=== PATIENT | female | born 1970 ===

== ENCOUNTER 2018-06-10 18:20 | Inpatient (IN) | payer BC ==
[2018-06-10] MEDS ORDERED: Sodium Chloride 0.9% 1,000 ML IV STA ×2 (18:41→19:49)
[2018-06-10 19:05] LABS: BASO # 0.01 K/mm3 (0.0-2.0); HEMOGLOBIN 12.2 g/dL (12.0-16.0); LYMPH # 1.3 (1.2-3.4); LYMPH % 5.8 % (22.0-35.0); MEAN CELL VOLUME 80.7 fl (80.0-105.0); MEAN CORPUSCULAR HEMOGLOBIN 26.8 pg (25.0-35.0); MEAN CORPUSCULAR HGB CONC 33.2 g/dl (31.0-37.0); MONO # 0.6 (0.1-0.6); MONO % 2.6 % (1.0-6.0); PLATELET COUNT 407 10^3/uL (120.0-450.0); RBC 4.55 10^6/uL (3.5-6.1); RED CELL DISTRIBUTION WIDTH 16.7 % (11.5-14.5); WHITE BLOOD COUNT 22.3 10^3/uL (4.5-11.0)
[2018-06-10 19:06] LABS: PH,URINE 6.5 (4.7-8.0); URINE APPEARANCE CLEAR (CLEAR); URINE BILIRUBIN NEGATIVE (NEGATIVE); URINE BLOOD LARGE (NEGATIVE); URINE COLOR LIGHT YELLOW (YELLOW); URINE GLUCOSE (UA) NEGATIVE (NEGATIVE); URINE LEUKOCYTE ESTERASE NEGATIVE Leu/uL (NEGATIVE); URINE PROTEIN 30 mg/dL (<30 mg/dL); URINE UROBILINOGEN 0.2 E.U./dL (<1 E.U./dL)
--- NOTE | 2018-06-10 19:07 | ED PDOC ---
Arrival/HPI - General Chief Complaint: Female Genitourinary Time Seen by Provider: 06/10/18 18:20 Historian: Patient - History of Present Illness Narrative History of Present Illness (Text): 06/10/18 18:53 48 y/o female with PMH of ovarian cysts, HTN presents to the ED c/o lower abdominal pain and vaginal bleeding x 1 day. Abdominal pain is sharp and located LLQ. Associated nausea and 2 episodes of non-bloody, non-bilious vomiting. Pt was due for her menstruation and started yesterday. States the vaginal bleeding is heavier than her typical periods. Denies fever, chills, diarrhea, chest pain, SOB, urinary symptoms, back pain, neck pain, cough, headache, palpitations, lightheadedness, or any other associated symptoms. Past Medical History - Provider Review Nursing Documentation Reviewed: Yes - Cardiac Hx Cardiac Disorders: Yes Hx Hypertension: Yes - Genitourinary/Gynecological Hx Genitourinary Disorders: Yes (ovarian cyst) - Psychiatric Hx Substance Use: No - Surgical History Hx Tubal Ligation: Yes Family/Social History - Physician Review Nursing Documentation Reviewed: Yes Family/Social History: No Known Family HX Smoking Status: Never Smoked Hx Alcohol Use: No Hx Substance Use: No Allergies/Home Meds Allergies/Adverse Reactions: Allergies No Known Allergies Allergy (Verified 06/10/18 18:26) Home Medications: Home Meds Medication Instructions Recorded Confirmed Losartan [Cozaar] 100 mg PO DAILY 06/10/18 06/10/18 Review of Systems - Review of Systems Constitutional: Normal. absent: Fatigue Eyes: Normal. absent: Vision Changes ENT: Normal. absent: Sore Throat, Sinus Congestion Respiratory: Normal. absent: SOB, Cough Cardiovascular: Normal. absent: Chest Pain, Palpitations Gastrointestinal: Abdominal Pain, Nausea, Vomiting. absent: Stool Changes, Constipation, Diarrhea, Appetite Changes, Hematochezia, Hematemesis Genitourinary Female: Vaginal Bleeding. absent: Dysuria, Frequency, Hematuria, Urine Output Changes, Vaginal Discharge Musculoskeletal: Normal. absent: Back Pain, Neck Pain Skin: Normal. absent: Rash Neurological: Normal. absent: Headache, Dizziness Physical Exam Vital Signs Reviewed: Yes Vital Signs Temp Pulse Resp BP Pulse Ox 06/10/18 18:33 98.3 F 104 H 18 140/80 97 Temperature: Afebrile Blood Pressure: Normal Pulse: Regular Respiratory Rate: Normal Appearance: Positive for: Well-Appearing, Non-Toxic, Comfortable Pain Distress: None Mental Status: Positive for: Alert and Oriented X 3 - Systems Exam Head: Present: Atraumatic, Normocephalic Pupils: Present: PERRL Extroacular Muscles: Present: EOMI Conjunctiva: Present: Normal Mouth: Present: Moist Mucous Membranes Neck: Present: Normal Range of Motion. No: Meningeal Signs Respiratory/Chest: Present: Clear to Auscultation, Good Air Exchange. No: Respiratory Distress, Accessory Muscle Use Cardiovascular: Present: Regular Rate and Rhythm, Normal S1, S2, Peripheal Pulses Present Abdomen: Present: Tenderness (suprapubic, LLQ), Normal Bowel Sounds. No: Distention, Peritoneal Signs Back: Present: Normal Inspection. No: CVA Tenderness Upper Extremity: Present: Normal Inspection, Normal ROM, NORMAL PULSES, Neurovascularly Intact, Capillary Refill < 2s. No: Cyanosis, Edema, Temperature Abnormalties Lower Extremity: Present: Normal Inspection, NORMAL PULSES, Normal ROM, Neurovascularly Intact, Capillary Refill < 2 s. No: Edema, Temperature Abnormal ties Neurological: Present: GCS=15, CN II-XII Intact, Speech Normal, Motor Func Grossly Intact, Normal Sensory Function, Gait Normal Skin: Present: Warm, Dry, Normal Color. No: Rashes Psychiatric: Present: Alert, Oriented x 3, Normal Insight, Normal Concentration, Normal Affect, Normal Mood Medical Decision Making ED Course and Treatment: 06/10/18 18:52 Initial Plan: * CBC, CMP * Lipase * Coags * UA * POC preg * Transvaginal US * IVF * Zofran * Toradol 19:21 Bloodwork reviewed, leukocytosis noted at 22. VBG ordered secondary to mild tachycardia. CT Abd/Pelvis with IV contrast ordered. Potassium 2.7, will replete with 40mEq oral KDur with 20mEq x 2 IVP. EKG ordered. Pt unable to tolerate transvaginal ultrasound per tech, pelvic ultrasound was completed. Pt refusing pelvic exam. EKG shows NSR at 80 with prolonged QT; No STEMI or other signs of acute isc hemia. Case discussed with ED attending Dr. Ness who agrees with plan of care. 19:53 Lactate 3.5. Pt tachycardic but not tachypneic or febrile. Lactate to be redrawn at 22:40. Code sepsis called. Blood and urine cultures ordered. 30cc/kg fluids started. Rocephin and Flagyl ordered. 21:02 Ultrasound shows enlarged uterus and ovarian cysts without free fluid. Pt continues to refuse pelvic exam. Educated patient on importance of pelvic exam given her current complaints. Pt continues to refuse. CXR shows no active disease as read by me. 22:20 CT shows moderate enteritis and nabothian cysts. 22:31 Case discussed with medicine [facility] operations staff officer, Dr. Kim who requested 40mEq PO KCl and 2g Mg Sulfate. He accepted patient to his service with diagnosis of leukocytosis, hypokalemia, and enteritis. financial institution president notified, who will come to see patient. - Lab Interpretations Lab Results: 06/10/18 18:34 06/10/18 18:34 Lab Results 06/10/18 19:40: pO2 63 H, VBG pH 7.44 H, VBG pCO2 42.0, VBG HCO3 28.5 H, VBG Total CO2 29.8 H, VBG O2 Sat (Calc) 93.8 H, VBG Base Excess 3.9 H, VBG Potassium 2.5 L*, Glucose 165 H, Lactate 3.5 H, FiO2 21.0, Crit Value Called To Cathy louis, Crit Value Called By Atc, Blood Gas Notified Time 1945, Sodium 133.0, Chloride 96.0 L, Venous Blood Potassium 2.5 L* 06/10/18 18:34: Sodium 132, Potassium 2.7 L*, Chloride 91 L, Carbon Dioxide 26, Anion Gap 17, BUN 10, Creatinine 0.5 L, Est GFR ( Amer) > 60, Est GFR (Non-Af Amer) > 60, Random Glucose 156 H, Calcium 8.5, Magnesium 1.7, Total Bilirubin 0.6, AST 25, ALT 11, Alkaline Phosphatase 88, Total Protein 7.1, Albumin 4.0, Globulin 3.0, Albumin/Globulin Ratio 1.3, Lipase 23 06/10/18 18:34: Urine Color Light yellow, Urine Appearance Clear, Urine pH 6.5, Ur Specific [place] 1.020, Urine Protein 30 H, Urine Glucose (UA) Negative, Urine Ketones Trace H, Urine Blood Large H, Urine Nitrate Negative, Urine Bilirubin Negative, Urine Urobilinogen 0.2, Ur Leukocyte Esterase Negative, Urine RBC 15 - 20 H, Urine WBC None, Ur Epithelial Cells None 06/10/18 18:34: PT 12.8 H, INR 1.15, APTT 30.1 06/10/18 18:34: WBC 22.3 H, RBC 4.55, Hgb 12.2, Hct 36.7, MCV 80.7, MCH 26.8, MCHC 33.2, RDW 16.7 H, Plt Count 407, MPV 9.0, Neut % (Auto) 91.6 H, Lymph % (Auto) 5.8 L, [place] % (Auto) 2.6, Eos % (Auto) 0.0 L, Baso % (Auto) 0.0, Lymph # (Auto) 1.3, [place] # (Auto) 0.6, Eos # (Auto) 0.0, Baso # (Auto) 0.01, Absolute Neuts (auto) 20.46 H, Neutrophils % (Manual) 87 H, Band Neutrophils % 1, Lymphocytes % (Manual) 8 L, Monocytes % (Manual) 4, Platelet Evaluation Normal I have reviewed the lab results: Yes - RAD Interpretation Narrative RAD Interpretations (Text): 06/10/18 22:13 CT Abd/Pelvis with IV contrast: Findings: Chest: The visualized lung bases are clear. There is a moderate sized hiatal hernia. Abdomen: The liver, spleen, pancreas, kidneys, gallbladder, and adrenal glands are unremarkable. The aorta is within normal limits. There is no evidence of abdominal lymphadenopathy or ascites. There is moderate fluid distention of bowel wall thickening seen throughout the small bowel. There is no focal evidence of obstruction. Pelvis: The colon is unremarkable, with no obstructive or inflammatory changes. There is mild sigmoid diverticulosis without evidence of diverticulitis. The appendix is normal. The urinary bladder is within normal limits. There are numerous large cystic lesions in the region of the cervix. The largest of these is a complex lesion measuring 4.2 x 4.2 cm. The uterus is slightly enlarged, with slight heterogeneity noted. Moderate amount of fluid is seen in the endometrial canal. The adnexa appear within normal limits. There is no evidence of pelvic lymphadenopathy or ascites. Bones: There are no suspicious osseous abnormalities seen. Impression: 1. Moderate enteritis. No evidence of small bowel obstruction. 2. Mild sigmoid diverticulosis without evidence of diverticulitis. 3. The kidneys and renal collecting system is grossly unremarkable. 4. Enlarged, heterogeneous uterus suspicious for a leiomyomatous involvement. 5. Numerous large simple a complex cystic lesions in the region of the cervix, consistent with either fibroids or extensive Nabothian cysts. Additionally, there is a moderate amount of fluid within the endometrial canal. This could represent cervical obstruction because of the fibroids or Nabothian cysts in the lower uterine segment/cervix. Clinical correlation is recommended. If further imaging is required, MRI is recommended Electronically signed on Jun 10, 2018 10:05:23 PM EDT by: Bernard Villegas M.D., NATY Certified By [facility] [facility] Fellowship Trained MRI and CT Specialist Pelvic Ultrasound: Findings Uterus Measures 10.62 x 7 x 8.12 cm. Normal in size and appearance. No fibroid or other mass lesion seen. Endometrium Thickened measures 14.6 mm in diameter. Unremarkable. Right ovary Measures 4.02 x 2.73 x 2.84 cm. No solid mass. Normal flow. Cyst measures 1.63 x 1.57 x 1.5 cm. Left ovary Measures 6.24 x 3.48 x 4.22 cm. No solid mass. Normal flow. Cysts measure 1.93 x 1.63 x 1.74 cm, 2.43 x 2.1 x 2.41 cm and 1.79 x 1.77 x 1.86 cm. Free fluid No significant free fluid noted. Other Findings None. Impression 1. Enlarged uterus. 2. Thickened endometrium. 3. Bilateral ovarian cysts. Electronically signed on Jun 10, 2018 8:17:44 PM EDT by: Bernard Villegas M.D., NATY Certified By [facility] [facility] Fellowship Trained MRI and CT Specialist Radiology Orders: 06/10/18 18:48 TRANSVAGINAL [US] Stat Chartered Wealth Manager: Radiologist - EKG Interpretation EKG Interpretation (Text): 06/10/18 20:11 Rate 80; NSR; Normal [place]; Prolonged QT; No STEMI, nonspecific ST/T wave changes Interpreted by ED Physician: Yes Type: 12 lead EKG - Medication Orders Current Medication Orders: Sodium Chloride (Sodium Chloride 0.9%) 1,000 mls @ 999 mls/hr IV .Q1H1M STA Stop: 06/10/18 19:41 Discontinued Medications Ketorolac Tromethamine (Toradol) 15 mg IVP STAT STA Stop: 06/10/18 18:42 Ondansetron HCl (Zofran Inj) 4 mg IVP STAT STA Stop: 06/10/18 18:42 Disposition/Present on Arrival - Present on Arrival Any Indicators Present on Arrival: No History of DVT/PE: No History of Uncontrolled Diabetes: No Urinary Catheter: No History of Decub. Ulcer: No History Surgical Site Infection Following: None - Disposition Have Diagnosis and Disposition been Completed?: Yes Diagnosis: Leukocytosis, Enteritis, Hypokalemia, Nabothian cyst Disposition: HOSPITALIZED Disposition Time: 22:31 Patient Problems: Current Active Problems Problem Status Onset Enteritis Acute Hypokalemia Acute Leukocytosis Acute Nabothian cyst Acute Condition: STABLE
[2018-06-10 19:09] LABS: URINE RBC 15 - 20 /hpf (0-2)
[2018-06-10 19:11] LABS: INR 1.15; PARTIAL THROMBOPLASTIN TIME 30.1 Seconds (26.9-38.3); PROTHROMBIN TIME 12.8 SECONDS (9.4-12.5)
[2018-06-10 19:24] LABS: ALB/GLOB RATIO 1.3 (1.1-1.8); ALT/SGPT 11 U/L (7-56); AST/SGOT 25 U/L (14-36); BLOOD UREA NITROGEN 10 mg/dL (7-21); CALCIUM 8.5 mg/dL (8.4-10.5); GFR NON-AFRICAN AMERICAN > 60; LIPASE 23 U/L (23-300)
[2018-06-10] MEDS ORDERED: Potassium Chloride 20 mEq ER Tab PO STA ×2 (19:25→22:29)
[2018-06-10] MEDS ORDERED: Iohexol 350 MG/100 ML VIAL ONE (19:33)
[2018-06-10 19:34] LABS: BAND 1 % (0-2); LYMPHOCYTE 8 % (22.0-35.0); MONOCYTE 4 % (1.0-6.0); NEUTROPHIL 87 % (50.0-70.0)
[2018-06-10 19:35] LABS: PLATELET ESTIMATE NORMAL (NORMAL)
[2018-06-10 19:48] LABS: VENOUS BLOOD GAS BASE EXCESS 3.9 mmol/L (0.0-2.0); VENOUS BLOOD GAS PO2 63 mm/Hg (30-55); VENOUS BLOOD PH 7.44 (7.32-7.43)
[2018-06-10] MEDS ORDERED: cefTRIAXone 1 gm 1 GM/100 ML BAG IVPB STA (19:49)
[2018-06-10] MEDS ORDERED: metroNIDAZOLE IV 500 mg/100 ml 500 MG/100 ML BAG IVPB STA (19:49)
[2018-06-10] MEDS ORDERED: Magnesium Sulfate 2 gm/50 ml 2 GM/50 ML BAG IVPB ONE (22:28)
[2018-06-10] MEDS: Sodium Chloride 0.9% 1,000 ML IV SCH (22:41)
[2018-06-10 23:19] LABS: VENOUS BLOOD GAS BASE EXCESS -0.8 mmol/L (0.0-2.0); VENOUS BLOOD GAS PO2 72 mm/Hg (30-55); VENOUS BLOOD PH 7.36 (7.32-7.43)
--- NOTE | 2018-06-10 23:53 | CP.PCM.HP ---
History of Present Illness - History of Present Illness History of Present Illness: PGY-1 History and Physical for Dr. Kim CC: lower abdominal pain, heavy menstrual bleeding HPI: Patient is a 48 year old female with past medical history of bilateral ovarian cysts and HTN presenting to the ED for acute onset lower abdominal pain with associated heavy menstrual bleeding that began yesterday. Abdominal pain is localized to her left lower quadrant and is described as sharp, nonradiating, 10/10 in severity. She also endorses 2 episodes of non- bloody, non-bilious vomiting today secondary to intractable abdominal pain. She states her periods are regular and usually regular flow, although she does intermittently have periods with heavier flow. LMP that began yesterday is heavier flow than normal. She state she experienced similar symptoms about a year ago. No fevers/chills, headaches, chest pain, palpitations, sob, cough, n/v/d/c, dysuria, melena, hematochezia. 12 pt ROS reviewed and otherwise negati ve. PMHx: HTN, ovarian cysts PSHx: tubal ligation Allergies: NKDA Home Meds: reviewed Social Hx: denies alcohol, tobacco, or illicit drug use Family Hx: unknown PMD: Dr. Chandler Present on Admission - Present on Admission Any Indicators Present on Admission: No Review of Systems - Review of Systems All systems: reviewed and no additional remarkable complaints except Review of Systems: as per HPI Past Patient History - Past Social History Smoking Status: Never Smoked - CARDIAC Hx Cardiac Disorders: Yes Hx Hypertension: Yes - GENITOURINARY/GYNECOLOGICAL Hx Genitourinary Disorders: Yes (ovarian cyst) - PSYCHIATRIC Hx Substance Use: No - SURGICAL HISTORY Hx Tubal Ligation: Yes Meds Allergies/Adverse Reactions: Allergies Allergy/AdvReac Type Severity Reaction Status Date / Time No Known Allergies Allergy Verified 06/10/18 18:26 Physical Exam - Constitutional Appears: Non-toxic, No Acute Distress - Head Exam Head Exam: ATRAUMATIC, NORMAL INSPECTION, NORMOCEPHALIC - Eye Exam Eye Exam: EOMI, Normal appearance, PERRL Pupil Exam: NORMAL ACCOMODATION - ENT Exam ENT Exam: Mucous Membranes Moist, Normal Exam - Neck Exam Neck exam: Positive for: Full Rom, Normal Inspection. Negative for: Tenderness - Respiratory Exam Respiratory Exam: Clear to Auscultation Bilateral, NORMAL BREATHING PATTERN. absent: Accessory Muscle Use, Rales, Rhonchi, Wheezes, Respiratory Distress, Stridor - Cardiovascular Exam Cardiovascular Exam: REGULAR RHYTHM, +S1, +S2 - GI/Abdominal Exam GI & Abdominal Exam: Normal Bowel Sounds, Soft. absent: Distended, Firm, Guarding, Organomegaly, Rebound, Rigid, Tenderness (no TTP elicited after receiving toradol in ED) - Exam Additional comments: refused - Extremities Exam Extremities exam: Positive for: normal capillary refill, normal inspection, pedal pulses present. Negative for: calf tenderness, pedal edema - Back Exam Back exam: NORMAL INSPECTION. absent: CVA tenderness (L), CVA tenderness (R), paraspinal tenderness - Neurological Exam Neurological exam: Alert, CN II-XII Intact, Oriented x3 - Psychiatric Exam Psychiatric exam: Normal Affect, Normal Mood - Skin Skin Exam: Dry, Intact, Normal Color, Warm Results - Vital Signs Recent Vital Signs: Last Vital Signs Temp 98.7 F 06/10/18 22:42 Pulse 89 06/10/18 22:53 Resp 17 06/10/18 22:53 BP 129/75 06/10/18 22:53 Pulse Ox 99 06/10/18 22:53 - Labs Result Diagrams: 06/10/18 18:34 06/10/18 18:34 Labs: Laboratory Results - last 24 hr 06/10/18 06/10/18 06/10/18 18:34 18:34 18:34 WBC 22.3 H RBC 4.55 Hgb 12.2 Hct 36.7 MCV 80.7 MCH 26.8 MCHC 33.2 RDW 16.7 H Plt Count 407 MPV 9.0 Neut % (Auto) 91.6 H Lymph % (Auto) 5.8 L [place] % (Auto) 2.6 Eos % (Auto) 0.0 L Baso % (Auto) 0.0 Lymph # (Auto) 1.3 [place] # (Auto) 0.6 Eos # (Auto) 0.0 Baso # (Auto) 0.01 Absolute Neuts (auto) 20.46 H Neutrophils % (Manual) 87 H Band Neutrophils % 1 Lymphocytes % (Manual) 8 L Monocytes % (Manual) 4 Platelet Evaluation Normal PT 12.8 H INR 1.15 APTT 30.1 pO2 VBG pH VBG pCO2 VBG HCO3 VBG Total CO2 VBG O2 Sat (Calc) VBG Base Excess VBG Potassium Glucose Lactate FiO2 Crit Value Called To Crit Value Called By Blood Gas Notified Time Sodium Potassium Chloride Carbon Dioxide Anion Gap BUN Creatinine Est GFR ( Amer) Est GFR (Non-Af Amer) Random Glucose Calcium Magnesium Total Bilirubin AST ALT Alkaline Phosphatase Total Protein Albumin Globulin Albumin/Globulin Ratio Lipase Venous Blood Potassium Urine Color Light yellow Urine Appearance Clear Urine pH 6.5 Ur Specific [place] 1.020 Urine Protein 30 H Urine Glucose (UA) Negative Urine Ketones Trace H Urine Blood Large H Urine Nitrate Negative Urine Bilirubin Negative Urine Urobilinogen 0.2 Ur Leukocyte Esterase Negative Urine RBC 15 - 20 H Urine WBC None Ur Epithelial Cells None 06/10/18 06/10/18 06/10/18 18:34 19:40 23:12 WBC RBC Hgb Hct MCV MCH MCHC RDW Plt Count MPV Neut % (Auto) Lymph % (Auto) [place] % (Auto) Eos % (Auto) Baso % (Auto) Lymph # (Auto) [place] # (Auto) Eos # (Auto) Baso # (Auto) Absolute Neuts (auto) Neutrophils % (Manual) Band Neutrophils % Lymphocytes % (Manual) Monocytes % (Manual) Platelet Evaluation PT INR APTT pO2 63 H 72 H VBG pH 7.44 H 7.36 VBG pCO2 42.0 44.0 VBG HCO3 28.5 H 24.9 VBG Total CO2 29.8 H 26.3 VBG O2 Sat (Calc) 93.8 H 94.6 H VBG Base Excess 3.9 H -0.8 L VBG Potassium 2.5 L* 3.3 L Glucose 165 H 136 H Lactate 3.5 H 2.6 H FiO2 21.0 21.0 Crit Value Called To Cathy dubose popcorn candy maker Crit Value Called By Atc [facility] Blood Gas Notified Time 1945 2318 Sodium 132 133.0 140.0 Potassium 2.7 L* Chloride 91 L 96.0 L 110.0 H Carbon Dioxide 26 Anion Gap 17 BUN 10 Creatinine 0.5 L Est GFR ( Amer) > 60 Est GFR (Non-Af Amer) > 60 Random Glucose 156 H Calcium 8.5 Magnesium 1.7 Total Bilirubin 0.6 AST 25 ALT 11 Alkaline Phosphatase 88 Total Protein 7.1 Albumin 4.0 Globulin 3.0 Albumin/Globulin Ratio 1.3 Lipase 23 Venous Blood Potassium 2.5 L* 3.3 L Urine Color Urine Appearance Urine pH Ur Specific [place] Urine Protein Urine Glucose (UA) Urine Ketones Urine Blood Urine Nitrate Urine Bilirubin Urine Urobilinogen Ur Leukocyte Esterase Urine RBC Urine WBC Ur Epithelial Cells Assessment & Plan - Assessment and Plan (Free Text) Assessment: 48 year old female with pmhx of ovarian cysts and HTN presenting to ED with acute onset LLQ abdominal pain and associated heavy menstrual bleeding. Elevated WBC in ED, tachycardic, neutrophilia, elevated lactate. Code Sepsis called. Plan: Sepsis, unknown etiology -HR 104, WBC 22.3 on admission -initial VBG in ED: Lactate 3.5 -UA: large blood, 15-20 RBC, high protein -received rocephin/flagyl x1 in ED -repeat cbc/cmp, ABG -procalcitonin -IVF @ 100cc/hr -f/u urine, blood cultures -c/w rocephin/flagyl for empiric coverage Hypokalemia -K 2.7 on admission -s/p 40 mEq Kdur, 20 mEq KCl IVPB x 2 in ED -s/p 2 g Mg sulfate -repeat labs, continue to monitor -replete prn Lower abdominal pain -s/p toradol 15 mg IVP x 2 in ED -CT abdomen/pelvis w/ IV contrast in ED (06/10): Moderate enteritis. No evidence of small bowel obstruction. Mild sigmoid diverticulosis without evidence of diverticulitis. Enlarged, heterogeneous uterus suspicious for a leiomyomatous involvement. Numerous large simple a complex cystic lesions in the region of the cervix, consistent with either fibroids or extensive Nabothian cysts. Additionally, there is a moderate amount of fluid within the endometrial canal. his could represent cervical obstruction because of the fibroids or Nabothian cysts in the lower uterine segment/cervix. Clinical correlation is recommended. If further imaging is required, MRI is recommended -GI (Dr. Brooks) consulted for abdominal pain, enteritis -toradol 15 mg IVP q6 prn for pain Heavy menstrual bleeding -H/H stable, continue to monitor -[employer] (Dr. Ervin) consulted Hx of ovarian cysts -Pelvis ultrasound: thickened endometrium, enlarged uterus, b/l ovarian cysts -f/u [employer] recs Hx of HTN -normotensive on admission, continue to monitor -may resume home losartan 100 mg PO daily PPx, Diet, Disposition -DVT ppx: scds -GI ppx: protonix 40 mg IVP daily -Diet: HHD Case discussed with Dr. Judy Mott DO, PGY-1
--- NOTE | 2018-06-11 01:23 | PCM.SEPTIC ---
Sepsis Progress Note - Reassessment Type Date of Evaluation: 06/11/18 Time of Evaluation: :22 Reassessment Type: Non-invasive reassessment - Non Invasive Reassessment Were the most recent vital sign reviewed: Yes Vital Sign (Latest): Temp Pulse Resp BP Pulse Ox 98.7 F 89 17 129/75 99 06/10/18 22:42 06/10/18 22:53 06/10/18 22:53 06/10/18 22:53 06/10/18 22:53 Cardiovascular: Yes: Regular Rate, Rhythm Respiratory: Yes: Normal Breath Sounds. No: Accessory Muscle Use, Rales, Rhonchi, Stridor, Wheezing, Respiratory Distress Capillary Refill: Normal (Less than 2 sec) Pulses: Normal Radial, Normal Dorsalis Pedis, Normal Posterior Tibialis Skin: Normal Color, Warm, Dry
[2018-06-11 01:44] LABS: EOS % 0.1 % (1.5-5.0); HEMOGLOBIN 10.7 g/dL (12.0-16.0); LYMPH # 2.2 (1.2-3.4); LYMPH % 13.2 % (22.0-35.0); MEAN CORPUSCULAR HEMOGLOBIN 26.4 pg (25.0-35.0); MEAN CORPUSCULAR HGB CONC 32.6 g/dl (31.0-37.0); MEAN PLATELET VOLUME 8.7 fl (7.0-11.0); MONO # 0.8 (0.1-0.6); MONO % 4.5 % (1.0-6.0); RBC 4.05 10^6/uL (3.5-6.1); WHITE BLOOD COUNT 16.9 10^3/uL (4.5-11.0)
[2018-06-11 03:08] VITALS: BMI 21.9
[2018-06-11] MEDS: metroNIDAZOLE IV 500 mg/100 ml 500 MG/100 ML BAG IVPB SCH ×3 (06:36→22:10)
[2018-06-11] MEDS: Sodium Chloride 0.9% 1,000 ML IV SCH ×2 (06:39→19:00)
[2018-06-11] MEDS ORDERED: Potassium Chloride 20 mEq ER Tab PO ONE (07:46)
[2018-06-11 07:51] LABS: BASO # 0.01 K/mm3 (0.0-2.0); BASO % 0.1 % (0.0-3.0); EOS # 0.1 (0.0-0.7); EOS % 0.4 % (1.5-5.0); LYMPH # 2.2 (1.2-3.4); LYMPH % 17.1 % (22.0-35.0); MEAN CELL VOLUME 81.4 fl (80.0-105.0); MEAN CORPUSCULAR HEMOGLOBIN 26.6 pg (25.0-35.0); MEAN CORPUSCULAR HGB CONC 32.7 g/dl (31.0-37.0); MEAN PLATELET VOLUME 9.3 fl (7.0-11.0); MONO % 7.2 % (1.0-6.0); RBC 3.76 10^6/uL (3.5-6.1); RED CELL DISTRIBUTION WIDTH 17.3 % (11.5-14.5); WHITE BLOOD COUNT 13.1 10^3/uL (4.5-11.0)
[2018-06-11 08:01] LABS: IRON 45 ug/dL (45-180)
[2018-06-11 08:06] LABS: ALB/GLOB RATIO 1.1 (1.1-1.8); ALBUMIN 2.9 g/dL (3.0-4.8); ALT/SGPT 16 U/L (7-56); AST/SGOT 17 U/L (14-36); BLOOD UREA NITROGEN 9 mg/dL (7-21); CALCIUM 7.5 mg/dL (8.4-10.5); GFR NON-AFRICAN AMERICAN > 60
[2018-06-11 08:10] LABS: % IRON SATURATION 12 % (20-55); TOTAL IRON BINDING CAPACITY 374 ug/dL (265-497)
--- NOTE | 2018-06-11 08:40 | CT ---
Date of service: 06/10/2018 PROCEDURE: CT Abdomen and Pelvis with contrast HISTORY: LLQ pain, vomiting COMPARISON: None available. TECHNIQUE: CT scan of the abdomen and pelvis was performed after administration of intravenous contrast. Oral contrast was not administered. Coronal and sagittal reformatted images were obtained. Contrast dose: 100 mL Omnipaque 350 Radiation dose: Total exam DLP = 242.13 mGy-cm. This CT exam was performed using one or more of the following dose reduction techniques: Automated exposure control, adjustment of the mA and/or kV according to patient size, and/or use of iterative reconstruction technique. FINDINGS: LOWER THORAX: The visualized lungs are clear. LIVER: There is mild hepatomegaly and diffuse fatty liver. Normal homogeneous enhancement. No gross lesion or ductal dilatation. GALLBLADDER AND BILE DUCTS: Well distended. No calcified gallstones, wall thickening or pericholecystic fluid. PANCREAS: Normal in size with homogeneous enhancement. No gross lesion or ductal dilatation. SPLEEN: Normal in size and appearance. ADRENALS: No discrete nodule. KIDNEYS AND URETERS: Normal in size with homogeneous enhancement. There is a punctate nonobstructing stone in the left interpolar region. No hydronephrosis. No solid mass. VASCULATURE: No aortic aneurysm. There are no aortic atherosclerotic calcifications or mural plaque present. BOWEL: Evaluation of the bowel is limited in the absence of oral contrast. The small bowel loops are normal in caliber. There is sigmoid diverticulosis without CT evidence for acute diverticulitis. No bowel wall thickening or obstruction. APPENDIX: Normal appendix. PERITONEUM: No free fluid. No free air. LYMPH NODES: No enlarged lymph nodes. BLADDER: Well distended and normal in appearance. REPRODUCTIVE: The uterus is anteverted and and bulky. There are multiple cystic lesions in the region of the left lower uterine segment/adnexa. BONES: No acute fracture. Within normal limits for the patient's age. OTHER FINDINGS: None. IMPRESSION: 1. No acute abdominal or pelvic abnormality. 2. Sigmoid diverticulosis without CT evidence for acute diverticulitis. 3. Multiple cystic lesions in the region of the left lower uterine segment/adnexa which may represent nabothian cysts or cysts in inferiorly positioned left ovary. Correlation with transvaginal ultrasound/MRI may be performed as clinically indicated. A preliminary report was provided by [employer] [facility].
--- NOTE | 2018-06-11 08:54 | RAD ---
Date of service: 06/10/2018 HISTORY: Sepsis Patient COMPARISON: No prior. FINDINGS: LUNGS: The lungs are well inflated and clear. PLEURA: No pleural effusions or pneumothorax. CARDIOVASCULAR: The heart is normal in size. No aortic atherosclerotic calcifications present. OSSEOUS STRUCTURES: Within normal limits for the patient's age. VISUALIZED UPPER ABDOMEN: Normal. OTHER FINDINGS: None. IMPRESSION: No active pulmonary disease.
[2018-06-11 09:19] LABS: URIC ACID 2.5 mg/dL (2.5-6.2)
--- NOTE | 2018-06-11 09:31 | US ---
Date of service: 06/10/2018 HISTORY: vaginal bleeding, LLQ pain COMPARISON: None available. TECHNIQUE: Transabdominal pelvic ultrasound was performed patient refused transvaginal examination due to pain. FINDINGS: UTERUS: Measures 10.6 x 7.0 x 0.1 cm. Anteverted and enlarged ENDOMETRIUM: Measures 14 mm in diameter. Unremarkable. CERVIX: No cervical abnormality identified. RIGHT OVARY: Measures 4.0 x 2.7 x 2.8 cm. No solid mass. Normal flow. There is a 1.6 x 1.5 x 1.5 cm cyst. LEFT OVARY: Measures 6.2 x 3.4 x 4.2 cm. No solid mass. Normal flow. There are 3 peripheral round cysts, the largest measures 2.4 x 2.1 x 2.4 cm. FREE FLUID: No significant free fluid noted. OTHER FINDINGS: None. IMPRESSION: Patient refused endovaginal examination. Limited transabdominal pelvic examination examination. 1. No evidence of fibroid uterus. 2. Three simple cysts in left ovary, the largest measures 2.4 x 2.1 x 2.4 cm. No evidence for torsion. A preliminary report was provided by [facility].
[2018-06-11 09:36] LABS: FREE T4 1.05 ng/dL (0.78-2.19)
[2018-06-11 09:50] LABS: VENOUS BLOOD GAS BASE EXCESS -2.1 mmol/L (0.0-2.0); VENOUS BLOOD GAS PO2 84 mm/Hg (30-55); VENOUS BLOOD PH 7.44 (7.32-7.43)
[2018-06-11] MEDS: cefTRIAXone 1 gm 1 GM/100 ML BAG IVPB SCH (09:52)
--- NOTE | 2018-06-11 11:11 | CP.PCM.PN ---
Subjective - Date & Time of Evaluation Date of Evaluation: 06/11/18 Time of Evaluation: 07:08 - Subjective Subjective: Ming Edmondson PGY2 IM Progress Note for Dr. Kim Patient was seen and examined at bedside. She continues to have bloody vaginal discharge but her abdominal pain is better tolerated. She states that she has meng d similar symptoms before, last time being in January 2018, and she was followed up by a [employer] Intermediary and a Intermediate Card Tender but states that she was told everything was fine. she denies any shortness of breath, weakness, or chest pain. Objective - Vital Signs/Intake and Output Vital Signs (last 24 hours): Temp Pulse Resp BP Pulse Ox 98.4 F 82 22 103/61 99 06/11/18 05:56 06/11/18 05:56 06/11/18 05:56 06/11/18 05:56 06/10/18 22:53 Intake and Output: 06/11/18 06/11/18 06:59 18:59 Intake Total 240 Output Total 0 Balance 240 - Medications Medications: Current Medications Acetaminophen (Tylenol 325mg Tab) 650 mg PO Q6 PRN PRN Reason: TEMP>=99.5F Acetaminophen (Tylenol 650 Mg Supp) 650 mg RC Q6H PRN PRN Reason: TEMP>=99.5F Sodium Chloride (Sodium Chloride 0.9%) 1,000 mls @ 100 mls/hr IV .Q10H [facility] Last Admin: 06/11/18 06:39 Dose: 100 mls/hr Metronidazole (Flagyl) 500 mg in 100 mls @ 100 mls/hr IVPB Q8 [facility]; Protocol Last Admin: 06/11/18 06:36 Dose: 100 mls/hr Ceftriaxone Sodium (Rocephin 1 Gram Ivpb) 1 gm in 100 mls @ 100 mls/hr IVPB DAILY [facility]; Protocol Last Admin: 06/11/18 09:52 Dose: 100 mls/hr Ondansetron HCl (Zofran Inj) 4 mg IVP Q4H PRN PRN Reason: Nausea/Vomiting Pantoprazole Sodium (Protonix Ec Tab) 40 mg PO 0600 [facility] - Labs Labs: 06/11/18 05:30 06/11/18 05:30 PT 12.8 SECONDS (9.4-12.5) H 06/10/18 18:34 INR 1.15 06/10/18 18:34 APTT 30.1 Seconds (26.9-38.3) 06/10/18 18:34 - Constitutional Appears: Well, Non-toxic, No Acute Distress - Head Exam Head Exam: ATRAUMATIC, NORMAL INSPECTION - Eye Exam Eye Exam: EOMI, Normal appearance. absent: Scleral icterus - ENT Exam ENT Exam: Mucous Membranes Moist, Normal Exam - Neck Exam Neck Exam: Full ROM, Normal Inspection - Respiratory Exam Respiratory Exam: Clear to Ausculation Bilateral, NORMAL BREATHING PATTERN. absent: Respiratory Distress - Cardiovascular Exam Cardiovascular Exam: RRR, +S1, +S2 - GI/Abdominal Exam GI & Abdominal Exam: Soft. absent: Distended, Tenderness Additional comments: blood noted on gown - Extremities Exam Extremities Exam: Full ROM. absent: Tenderness - Neurological Exam Neurological Exam: Alert, Awake - Skin Skin Exam: Intact, Warm Assessment and Plan - Assessment and Plan (Free Text) Assessment: 48 year old female with a PMH of ovarian cysts and HTN presenting to ED with acute onset LLQ abdominal pain and associated heavy menstrual bleeding. CODE SEPSIS was called. CT revealed multiple cystic lesions in left lower uteri ne segment/ cysts in left ovary. Transvaginal US was refused, but pelvic US shows no evidence of torsion, and 3 simple left ovarian cysts. # Sepsis # multiple cysts in uterus/left ovaries # heavy menstrual bleeding # HTN # Hypokalemia # sigmoid diverticulosis w/o diverticulitis Plan: - cont NS @ 100cc/hr - cont Rocephin & Flagyl - CT and US reviewed - Zofran PRN - analgesia PRN - blood and urine cultures pending - monitor K levels and replete as needed - GI consulted, recs appreciated - CONTROL ENGINEER consulted, recs appreciated - ID consulted, recs appreciated - SCDs for GI ppx - protonix 40 mg IVP daily for GI ppx Case was discussed with Dr. Kim
[2018-06-11 13:23] LABS: VENOUS BLOOD GAS BASE EXCESS -1.6 mmol/L (0.0-2.0); VENOUS BLOOD GAS PO2 186 mm/Hg (30-55); VENOUS BLOOD PH 7.45 (7.32-7.43)
[2018-06-11] MEDS: Naproxen 550 mg Tab PO SCH (13:47)
[2018-06-11 14:00] LABS: HEMOGLOBIN 9.5 g/dL (12.0-16.0); MEAN CELL VOLUME 82.5 fl (80.0-105.0); MEAN CORPUSCULAR HEMOGLOBIN 27.2 pg (25.0-35.0); MEAN PLATELET VOLUME 8.9 fl (7.0-11.0); RBC 3.49 10^6/uL (3.5-6.1); RED CELL DISTRIBUTION WIDTH 17.5 % (11.5-14.5); WHITE BLOOD COUNT 11.3 10^3/uL (4.5-11.0)
--- NOTE | 2018-06-11 14:50 | PN ---
DATE: 06/11/2018 LOCATION: The patient is in room 266, bed 2. SUBJECTIVE: Overnight nurse's notes were reviewed. The patient continued to have menstrual bleeding and vaginal bleeding. A 14-system review was positive for above. PHYSICAL EXAMINATION: VITAL SIGNS: T-max is sinus rhythm, sinus bradycardia, heart rate 50s and 64, blood pressure is 118/74, respirations 18-20, and O2 sat 96%-98%. HEAD: normocephalic, atraumatic. HEENT: Shows pinkish pale conjunctivae. Anicteric sclerae. No oropharyngeal lesion. No neck rigidity. CHEST: Symmetrical. LUNGS: Shows no audible crackle, rales or wheezing. CARDIOVASCULAR: S1 and S2, regular rhythm. ABDOMEN: Soft, positive bowel sounds. Some suprapubic and lower quadrant voluntary guarding noted. Questionable left lower quadrant costovertebral angle tenderness noted. GENITALIA: Female. RECTAL: Deferred. EXTREMITIES: Shows no pitting edema, no calf tenderness, no Homans' sign. NEUROLOGICAL: The patient is alert, awake, and oriented x3. Cranial nerves II-XII limited. Gait examination is not tested. Vascular examination is palpable pulses. LABORATORY DATA: The patient's lab data reviewed. WBC count is 22,000, going down to 13,000, hemoglobin and hematocrit initially 12.2 and 36.7. Today hemoglobin and hematocrit 10 and 30.6, and platelet 407-350, lactic acid 3.5-2.6. Potassium initially was 2.7, now 4, total protein 5.6, and albumin 2.9. CAT scan of the abdomen and pelvis shows hepatomegaly, hepatic steatosis, left-sided kidney stone nonobstructive, sigmoid diverticulosis, Nabothian cyst with questionable left ovarian cyst. Pelvic ultrasound shows an enlarged uterus, thickened endometrium, and bilateral ovarian cyst. IMPRESSION: 1. Vaginal bleeding. Questionable menorrhagia. 2. Questionable sepsis versus systemic inflammatory response syndrome with lactic acidosis. 3. Severe symptomatic hypokalemia. 4. History of hypertension. 5. History of ovarian cyst. 6. History of tubal ligation. 7. Questionable menorrhagia 8. Lower abdominal pain. 9. Tachycardia. 10. Lower abdominal pain with nausea and vomiting. 11. Leukocytosis. 12. Normocytic anemia. 13. Granulocytosis. 14. Hypokalemia. 15. Mild protein malnutrition and hypoalbuminemia. 16. Proteinuria. 17. Microscopic hematuria. 18. Hepatomegaly with hepatic steatosis and fatty infiltration of the liver. 19. Nonobstructing left-sided nephrolithiasis. 20. Sigmoid diverticulosis. 21. Nabothian cyst and possible left ovarian cyst. 22. Enlarged uterus with thickened endometrium. 23. Bilateral ovarian cyst 24. Hypokalemia. 25. Leukocytosis with granulocytosis. 26. Normocytic anemia. 27. Lactic acidosis. 28. Vaginal bleeding, probably menstrual vaginal bleeding. PLAN: 1. At this time, the patient has been ordered serial labs. 2. The patient has been ordered SODA WORKER and GI evaluation. Iron studies has been ordered. Repeat labs and serial labs have been ordered. The patient is started on prophylactic. The patient has been ordered broad-spectrum IV antibiotic. The patient has been ordered pharmacological and non-pharmacological GI and DVT prophylaxis. The patient has been ordered with potassium magnesium electrolytes. 3. The patient's further management will be dependent upon the gastroenterology SODA WORKER recommendation. 4. The patient will be typed and crossmatched with PRBC. The patient's serial hemoglobin/hematocrit and CBC has been ordered. The patient has been updated about her condition. About need for further diagnostic therapeutic intervention and need for evaluation by all other subspecialty including Gastroenterology was Gynecology, which she acknowledged understand. All questions and concerned answered. At this time the patient will be continued on above therapeutic intervention until further stabilization and management. Dictated and electronically signed, not read. Presley Kim MD
[2018-06-11 17:43] LABS: FOLATE 16.6 ng/mL
--- NOTE | 2018-06-11 20:57 | CARD ---
APPROVED REPORT Date of service: 06/10/2018 EKG Measurement Heart [id number] <Conclusion> Normal sinus rhythm Normal ECG
--- NOTE | 2018-06-11 23:39 | CON ---
DATE: 06/11/2018 GASTROENTEROLOGY CONSULTATION REQUESTING PHYSICIAN: Dr. Kim. REASON FOR CONSULTATION: I have been asked to see this 48-year-old female with a history of ovarian cysts, hypertension, intermittent menorrhagia, who comes to the hospital with a 2-day history of severe left pelvic pain. This was associated with heavy menstrual flow. The patient states that her pain is similar to her usual menstrual cramps, only worse in severity. She had associated vomiting on the day of admission to the hospital. The patient states that back in 01/2018, she had another episode of severe menstrual cramps, prompting a visit to the emergency room. Routine blood work showed the patient to have elevated white blood cell count. CT scan of the abdomen and pelvis showed an enlarged uterus with left ovarian cysts. Pelvic ultrasound showed the same. The patient states that her pain has somewhat diminished since her hospitalization, she denies any further vomiting. PAST MEDICAL HISTORY: Notable for hypertension, ovarian cysts, occasional menorrhagia. PAST SURGICAL HISTORY: Notable for tubal ligation. SOCIAL HISTORY: She denies cigarette smoking or alcohol use. FAMILY HISTORY: Noncontributory. REVIEW OF SYSTEMS: A 14-point review of systems is notable for severe left pelvic pain and heavy menstrual flow. HOME MEDICATIONS: Medications at home include losartan. PHYSICAL EXAMINATION: GENERAL: Well-developed female, lying in bed, in no acute distress. VITAL SIGNS: Reveal temperature of 97.9, blood pressure 131/79, heart rate of 86. HEENT: Reveal sclerae to be white, conjunctivae pink. NECK: Supple. CHEST: Lungs are clear. HEART: Exam reveals a regular rate and rhythm. ABDOMEN: Soft. No rebound, no guarding. PELVIC: There is [id number] left pelvic pain. EXTREMITIES: Show no edema. LABORATORY DATA: Reveal white blood cell count this morning at 13.1, it is down from 22.3; hemoglobin at 10. Chemistries reveal on admission to the hospital, BUN 9, creatinine 0.5, AST, ALT, alk phos normal. Iron saturation of 12. IMPRESSION: This is a 48-year-old female with severe left pelvic pain associated with heavier than normal menstrual flow and leukocytosis on admission to the hospital. CT scan of the abdomen and pelvis reveal an enlarged uterus with left ovarian cysts. There was no fluid detected in the cul-de-sac. I suspect that her pain is from severe menstrual cramps. RECOMMENDATIONS: 1. Check blood and urine cultures. 2. We will start the patient on Naprosyn 550 mg twice a day with a PPI for end stage ulcer prophylaxis. Thank you. Polo Brooks MD
[2018-06-12] MEDS ORDERED: Pantoprazole 40 mg EC Tab PO SCH ×2 (06:00→16:00)
[2018-06-12] MEDS: metroNIDAZOLE IV 500 mg/100 ml 500 MG/100 ML BAG IVPB SCH ×2 (06:35→14:27)
[2018-06-12] MEDS: Sodium Chloride 0.9% 1,000 ML IV SCH (06:39)
[2018-06-12 07:47] LABS: BASO # 0.01 K/mm3 (0.0-2.0); BASO % 0.1 % (0.0-3.0); EOS # 0.4 (0.0-0.7); EOS % 4.3 % (1.5-5.0); HEMOGLOBIN 9.2 g/dL (12.0-16.0); LYMPH # 1.3 (1.2-3.4); LYMPH % 15.3 % (22.0-35.0); MEAN CELL VOLUME 83.8 fl (80.0-105.0); MEAN CORPUSCULAR HEMOGLOBIN 27.1 pg (25.0-35.0); MEAN CORPUSCULAR HGB CONC 32.3 g/dl (31.0-37.0); MEAN PLATELET VOLUME 8.7 fl (7.0-11.0); MONO # 0.5 (0.1-0.6); MONO % 5.5 % (1.0-6.0); RBC 3.4 10^6/uL (3.5-6.1); RED CELL DISTRIBUTION WIDTH 17.9 % (11.5-14.5); WHITE BLOOD COUNT 8.2 10^3/uL (4.5-11.0)
[2018-06-12 07:54] LABS: VENOUS BLOOD GAS BASE EXCESS 1.9 mmol/L (0.0-2.0); VENOUS BLOOD GAS PO2 33 mm/Hg (30-55); VENOUS BLOOD PH 7.42 (7.32-7.43)
[2018-06-12 08:10] LABS: ALB/GLOB RATIO 1.1 (1.1-1.8); ALBUMIN 2.8 g/dL (3.0-4.8); ALT/SGPT 18 U/L (7-56); AST/SGOT 23 U/L (14-36); BILIRUBIN,DIRECT 0.1 mg/dL (0.0-0.4); BLOOD UREA NITROGEN 9 mg/dL (7-21); CALCIUM 7.3 mg/dL (8.4-10.5); GFR NON-AFRICAN AMERICAN > 60
[2018-06-12] MEDS ORDERED: Gadodiamide 287 MG/ML VIAL (15ML) IV ONE (09:33)
[2018-06-12] MEDS ORDERED: Ergocalciferol 50,000 Intl Units Cap PO SCH (10:00)
--- NOTE | 2018-06-12 11:55 | DS ---
DATE: 06/12/2018 SUBJECTIVE: The patient is seen in room 266, bed 2. Overnight nurse's notes were reviewed. The patient continued to have menstrual flow and vaginal bleeding which the patient states that this is her regular menstrual cycle. The patient's abdominal pain is less than before. Fourteen-system review was done, pertinent positive and negative dictated above. PHYSICAL EXAMINATION: VITAL SIGNS: T-max 97.8. Telemetry shows sinus rhythm, heart rate 68, blood pressure 98/61, respirations 18. HEENT: Head examination normocephalic, atraumatic. HEENT examination shows pinkish pale conjunctivae. Dry oral mucosa. NECK: No neck rigidity. CHEST: Kyphosis. LUNGS: Examination shows no audible crackle, rales or wheezing. ABDOMEN: Soft, positive bowel sound, positive suprapubic left lower quadrant deep tenderness noted. No rebound tenderness noted. No guarding or rigidity. No costovertebral angle tenderness. GENITALIA: Female. RECTAL: Exam is deferred. EXTREMITY: Shows no pitting edema, no calf tenderness, no Homans' sign. NEUROLOGIC: The patient is alert, awake, oriented x3. Cranial nerves II through XII intact. Gait examination is not tested. MUSCULOSKELETAL: Examination shows a normal body mass index. PSYCHIATRIC: Examination is negative for anxiety, depression. Negative for auditory or visual hallucination. Negative for suicidal or homicidal ideation. DIAGNOSTICS: 06/12/2018, WBC 8.2, hemoglobin and hematocrit 9.2 and 28.5, platelet 285, granulocyte 75% segs. VBG lactic acid 0.8, plasma lactic acid 0.6. Blood urine cultures all negative. The patient's WBC count has come down from 22.3 to 8.2. The patient's lactic acid has been coming down from 3.5 to 2.6 to 3.8 to 1.6 to 0.8 and 0.6. The patient's procalcitonin level is less than 0.5. Hemoglobin A1c 6.6. Vitamin D 25-hydroxy 16.3. CAT scan of the abdomen and pelvis shows significant sigmoid diverticulosis. Urinalysis shows proteinuria, ketonuria, microscopic hematuria. IMPRESSION: 1. Questionable sepsis versus systemic inflammatory response syndrome with lactic acidosis. 2. Leukocytosis with granulocytosis. 3. Normocytic anemia. 4. Sigmoid diverticulosis. 5. Hypovitaminosis D. 6. Questionable prediabetes with hemoglobin A1c of 6.6. 7. Proteinuria, microscopic hematuria, ketonuria. 8. Severe symptomatic hypokalemia. 9. Menorrhagia. 10. Bilateral ovarian cyst. 11. Hypotension and hypovolemia. 12. History of hypertension, presently hypotension. PLAN: At this time, the patient is being seen by Gastroenterology. Their recommendations are reviewed. The patient is awaiting BATTERY CHECKER evaluation. The patient's blood cultures and urine cultures at 24 hours are negative. The patient will be continued on repeat labs. The patient has been ordered serial labs. The patient will be continued on all the therapeutic intervention as per the MAR of today. The patient has been ordered nonpharmacological GI and DVT prophylaxis. The patient is on broad-spectrum IV antibiotic at present. The patient was seen by Gastroenterology, ordered Naprosyn and high-dose proton pump inhibitor per the patient's complain of abdominal pain and menorrhagia. At present, if the patient is cleared by all subspecialty, the patient will be considered for discharge home and discharge followup with outpatient BATTERY CHECKER for evaluation of fibroid uterus and endometrial thickening and ovarian cyst. The patient has been updated about her condition, diagnosis, test results, recommendation at length. The patient has also been advised outpatient GI followup for elective endoscopy, colonoscopy. All of the above was explained to the patient at length and all questions concerned answered to the patient's satisfaction which she acknowledged and understands. Dictated and electronically signed, not read. Presley Kim MD
[2018-06-12] MEDS: cefTRIAXone 1 gm 1 GM/100 ML BAG IVPB SCH (12:04)
[2018-06-12] MEDS: Naproxen 550 mg Tab PO SCH (12:04)
[2018-06-12 12:44] VITALS: PULSE 82
--- NOTE | 2018-06-12 13:28 | PN ---
DATE: 06/12/2018 SUBJECTIVE: The patient feels better. Her pelvic pain is less with Naprosyn. Her menstrual bleeding is less. PHYSICAL EXAMINATION VITAL SIGNS: Reveal temperature of 97.8, blood pressure 98/61 and heart rate 68. HEENT: Reveals sclerae to be white. Conjunctivae pink. NECK: Supple. CHEST: Lungs clear. HEART: Reveals regular rate and rhythm. ABDOMEN: Soft. Decreased left pelvic tenderness. No rebound or guarding. EXTREMITIES: Show no edema. LABORATORY DATA: Reveal white blood cell count 8.2 and hemoglobin 9.2. Chemistries reveal a chloride of 112. AST, ALT and alk phos were all normal. IMPRESSION: This is 48-year-old female with severe left pelvic pain, leukocytosis with pelvic pain most likely secondary to her menstrual. Her menstrual flow was less. RECOMMENDATIONS: 1. Would continue Naprosyn 550 mg twice a day with a PPI for ulcer prophylaxis. 2. The patient will need follow up with her main line assembler. Polo Brooks MD
--- NOTE | 2018-06-12 15:17 | MRI ---
Date of service: 06/12/2018 PROCEDURE: MRI pelvis without contrast HISTORY: MENORHAGIA/OVARIAN CYSTS COMPARISON: None available. TECHNIQUE: Multiplanar, multi sequence MR images of the pelvis were obtained. No intravenous gadolinium contrast was administered. FINDINGS: UTERUS: Myometrium: The junctional zone is thickened and slightly irregular in contour suspicious for adenomyosis. The junctional zone measures 18 mm in thickness. Normal is considered 12 mm or less. Endometrium: Unremarkable. Cervix: Small nabothian cysts Vagina: Unremarkable. Fibroids: None. OVARIES/ ADNEXA: Right ovary: Several cysts are seen in the right ovary the largest measuring 2 cm. Left ovary: The collection of multiple cysts measures 4 x 4.8 cm the largest cysts measure 2 cm in diameter Fallopian tubes: Not visualized. No evidence of hydrosalpinx. BOWEL: Partially visualized rectosigmoid colon is grossly unremarkable. LYMPH NODES: No lymphadenopathy. BLADDER: Unremarkable. FREE FLUID: None. PELVIC BONES: Grossly unremarkable. OTHER FINDINGS: None. IMPRESSION: The junctional zone is thickened and slightly irregular in contour suspicious for adenomyosis. The junctional zone measures 18 mm in thickness. Normal is considered 12 mm or less. Right ovary: Several cysts are seen in the right ovary the largest measuring 2 cm. Left ovary: The collection of multiple cysts measures 4 x 4.8 cm the largest cysts measure 2 cm in diameter
--- NOTE | 2018-06-12 15:44 | CP.PCM.DIS ---
Provider - Provider Date of Admission: 06/10/18 22:26 Attending physician: Presley Kim MD Primary care physician: Moses Chandler MD Consults: 06/10/18 23:17 Physician Consult Routine Comment: Consulting Provider: Katiana Ervin Consulting Physician: Katiana Ervin Reason for Consult: menorrhagia and ovarian cyst on CTAP; code sepsis 06/11/18 00:00 Gastroenterology Consult Routine Comment: Consulting Provider: Polo Brooks Consulting Physician: Polo Brooks Reason for Consult: LLQ pain, enteritis 06/11/18 14:33 Infectious Disease Consult Routine Comment: Consulting Provider: Sergio Chapman Consulting Physician: Sergio Chapman Reason for Consult: sepsis, fibroids, ?enteritis Time Spent in preparation of Discharge (in minutes): 40 Diagnosis - Discharge Diagnosis (1) Anemia Status: Acute (2) Fibroid Status: Acute (3) Ovarian cyst Status: Acute Hospital Course - Lab Results Lab Results: Micro Results 06/10/18 21:40 Urine,Clean Catch Urine Culture - Final No Growth (<1,000 CFU/ML) 06/10/18 20:05 Blood Blood Culture - Preliminary NO GROWTH AFTER 24 HOURS 06/10/18 19:35 Blood Blood Culture - Preliminary NO GROWTH AFTER 24 HOURS Most Recent Lab Values WBC 8.2 10^3/uL (4.5-11.0) D 06/12/18 07:33 RBC 3.40 10^6/uL (3.5-6.1) L 06/12/18 07:33 Hgb 9.2 g/dL (12.0-16.0) L 06/12/18 07:33 Hct 28.5 % (36.0-48.0) L 06/12/18 07:33 MCV 83.8 fl (80.0-105.0) 06/12/18 07:33 MCH 27.1 pg (25.0-35.0) 06/12/18 07:33 MCHC 32.3 g/dl (31.0-37.0) 06/12/18 07:33 RDW 17.9 % (11.5-14.5) H 06/12/18 07:33 Plt Count 285 10^3/uL (120.0-450.0) 06/12/18 07:33 MPV 8.7 fl (7.0-11.0) 06/12/18 07:33 Neut % (Auto) 74.8 % (50.0-68.0) H 06/12/18 07:33 Lymph % (Auto) 15.3 % (22.0-35.0) L 06/12/18 07:33 [place] % (Auto) 5.5 % (1.0-6.0) 06/12/18 07:33 Eos % (Auto) 4.3 % (1.5-5.0) 06/12/18 07:33 Baso % (Auto) 0.1 % (0.0-3.0) 06/12/18 07:33 Lymph # (Auto) 1.3 (1.2-3.4) 06/12/18 07:33 [place] # (Auto) 0.5 (0.1-0.6) 06/12/18 07:33 Eos # (Auto) 0.4 (0.0-0.7) 06/12/18 07:33 Baso # (Auto) 0.01 K/mm3 (0.0-2.0) 06/12/18 07:33 Absolute Neuts (auto) 6.13 (1.4-6.5) 06/12/18 07:33 Neutrophils % (Manual) 87 % (50.0-70.0) H 06/10/18 18:34 Band Neutrophils % 1 % (0-2) 06/10/18 18:34 Lymphocytes % (Manual) 8 % (22.0-35.0) L 06/10/18 18:34 Monocytes % (Manual) 4 % (1.0-6.0) 06/10/18 18:34 Platelet Evaluation Normal (NORMAL) 06/10/18 18:34 PT 12.8 SECONDS (9.4-12.5) H 06/10/18 18:34 INR 1.15 06/10/18 18:34 APTT 30.1 Seconds (26.9-38.3) 06/10/18 18:34 pO2 33 mm/Hg (30-55) 06/12/18 07:33 VBG pH 7.42 (7.32-7.43) 06/12/18 07:33 VBG pCO2 41.0 (40-60) 06/12/18 07:33 VBG HCO3 26.6 mmol/l (21-28) 06/12/18 07:33 VBG Total CO2 27.9 mmol.L (22-28) 06/12/18 07:33 VBG O2 Sat (Calc) 63.4 % (40-65) 06/12/18 07:33 VBG Base Excess 1.9 mmol/L (0.0-2.0) 06/12/18 07:33 VBG Potassium 3.8 mmol/L (3.6-5.2) 06/12/18 07:33 Sodium 143.0 mmol/L (132-148) 06/12/18 07:33 Chloride 112.0 mmol/L (98-107) H 06/12/18 07:33 Glucose 121 mg/dl (65-105) H 06/12/18 07:33 Lactate 0.8 mmol/L (0.7-2.1) 06/12/18 07:33 FiO2 21.0 % 06/12/18 07:33 Crit Value Called To Barney 06/11/18 09:35 Crit Value Called By 06/11/18 09:35 Blood Gas Notified Time 950 06/11/18 09:35 Sodium 142 mmol/L (132-148) 06/12/18 07:33 Potassium 3.7 mmol/L (3.6-5.0) 06/12/18 07:33 Chloride 112 mmol/L (98-107) H 06/12/18 07:33 Carbon Dioxide 27 mmol/L (21-33) 06/12/18 07:33 Anion Gap 7 (10-20) L 06/12/18 07:33 BUN 9 mg/dL (7-21) 06/12/18 07:33 Creatinine 0.6 mg/dl (0.7-1.2) L 06/12/18 07:33 Est GFR ( Amer) > 60 06/12/18 07:33 Est GFR (Non-Af Amer) > 60 06/12/18 07:33 Random Glucose 109 mg/dL (70-110) 06/12/18 07:33 Hemoglobin A1c 6.6 % (4.2-6.5) H 06/11/18 07:40 Fructosamine 175 umol/L (190-270) L 06/11/18 09:35 Lactic Acid 0.6 mmol/L (0.7-2.1) L 06/12/18 07:33 Uric Acid 2.5 mg/dL (2.5-6.2) 06/11/18 09:00 Calcium 7.3 mg/dL (8.4-10.5) L 06/12/18 07:33 Phosphorus 2.3 mg/dL (2.5-4.5) L 06/12/18 07:33 Magnesium 2.2 mg/dL (1.7-2.2) 06/12/18 07:33 Iron 45 ug/dL (45-180) 06/11/18 05:30 TIBC 374 ug/dL (265-497) 06/11/18 05:30 % Saturation 12 % (20-55) L 06/11/18 05:30 Erythropoietin 39.5 mIU/mL (2.6-18.5) H 06/11/18 09:35 Ferritin 13.4 ng/mL 06/11/18 05:30 Total Bilirubin 0.5 mg/dL (0.2-1.3) 06/12/18 07:33 Direct Bilirubin 0.1 mg/dL (0.0-0.4) 06/12/18 07:33 AST 23 U/L (14-36) 06/12/18 07:33 ALT 18 U/L (7-56) 06/12/18 07:33 Alkaline Phosphatase 58 U/L (38-126) 06/12/18 07:33 Total Protein 5.3 g/dL (5.8-8.3) L 06/12/18 07:33 Albumin 2.8 g/dL (3.0-4.8) L 06/12/18 07:33 Globulin 2.5 gm/dL 06/12/18 07:33 Albumin/Globulin Ratio 1.1 (1.1-1.8) 06/12/18 07:33 Triglycerides 159 mg/dL (35-160) 06/11/18 09:00 Cholesterol 136 mg/dL (130-200) 06/11/18 09:00 LDL Cholesterol Direct 72 mg/dL (0-129) 06/11/18 09:00 HDL Cholesterol 37 mg/dL (29-60) 06/11/18 09:00 Lipase 23 U/L (23-300) 06/10/18 18:34 Vitamin B12 390 pg/mL (239-931) 06/11/18 09:00 25-OH Vitamin D Total 16.3 NG/ML (30.0-100.0) L 06/11/18 09:00 Folate 16.6 ng/mL 06/11/18 09:00 Procalcitonin < 0.50 NG/ML (0.19-0.49) H 06/11/18 05:30 Free T4 1.05 ng/dL (0.78-2.19) 06/11/18 09:00 Thyroxine (T4) 8.7 ug/dL (5.5-11.0) 06/11/18 09:00 TSH 3rd Generation 2.80 mIU/mL (0.46-4.68) 06/11/18 09:00 Beta HCG, Quant < 2.39 mIU/mL (0-6.15) 06/12/18 00:30 Venous Blood Potassium 3.8 mmol/L (3.6-5.2) 06/12/18 07:33 Urine Color Light yellow (YELLOW) 06/10/18 18:34 Urine Appearance Clear (CLEAR) 06/10/18 18:34 Urine pH 6.5 (4.7-8.0) 06/10/18 18:34 Ur Specific [place] 1.020 (1.005-1.035) 06/10/18 18:34 Urine Protein 30 mg/dL (<30 mg/dL) H 06/10/18 18:34 Urine Glucose (UA) Negative mg/dL (NEGATIVE) 06/10/18 18:34 Urine Ketones Trace mg/dL (NEGATIVE) H 06/10/18 18:34 Urine Blood Large (NEGATIVE) H 06/10/18 18:34 Urine Nitrate Negative (NEGATIVE) 06/10/18 18:34 Urine Bilirubin Negative (NEGATIVE) 06/10/18 18:34 Urine Urobilinogen 0.2 E.U./dL (<1 E.U./dL) 06/10/18 18:34 Ur Leukocyte Esterase Negative [place]/uL (NEGATIVE) 06/10/18 18:34 Urine RBC 15 - 20 /hpf (0-2) H 04/15/19 18:34 Urine WBC None /hpf (0-6) 06/10/18 18:34 Ur Epithelial Cells None /hpf (0-5) 06/10/18 18:34 Urine HCG, Qual Negative (NEGATIVE) 06/12/18 13:25 - Hospital Course Hospital Course: 48 year old female with a PMH of ovarian cysts, b/l tubal ligation and HTN admitted with acute onset LLQ abdominal pain and associated heavy menstrual bleeding. CODE SEPSIS was called. CT revealed multiple cystic lesions in left lower uterine segment/ cysts in left ovary. Transvaginal US was refused, but pelvic US shows no evidence of torsion, and 3 simple left ovarian cysts. Pelvic MRI suspicious for adenomyosis and showed multiples ovarian cysts. Patient is on her period, but the heavy bleeding improved during hospital stay. She states that she has been worked up before for similar symptoms as outpatient. I discussed in depth with BI TRI OPERATOR Dr. Guzman and he cleared the patient for discharge and I instructed her to follow-up with him in his office the next day (06/13/18). Patient understood and I gave the office number to her ([phone]). Patient is noted to be standing and walking around with no dizziness or weakness. She will be discharged w/ cipro/flagyl and NSAIDs with instructions to follow-up with Dr. Guzman (licensed final expense agents) next day and Dr. Kim (pmd) within 1 week. Discharge Exam - Head Exam Head Exam: ATRAUMATIC, NORMAL INSPECTION - Eye Exam Eye Exam: EOMI, Normal appearance, PERRL Pupil Exam: NORMAL ACCOMODATION, PERRL - ENT Exam ENT Exam: Mucous Membranes Moist, Normal Exam - Neck Exam Neck exam: Full Rom, Normal Inspection - Respiratory Exam Respiratory Exam: NORMAL BREATHING PATTERN. absent: Respiratory Distress - Cardiovascular Exam Cardiovascular Exam: RRR, +S1, +S2 - GI/Abdominal Exam GI & Abdominal Exam: Normal Bowel Sounds, Soft. absent: Distended, Tenderness - Extremities Exam Extremities exam: full ROM - Back Exam Back exam: FULL ROM. absent: tenderness - Neurological Exam Neurological exam: Alert, CN II-XII Intact, Normal Gait, Oriented x3, Reflexes Normal - Skin Skin Exam: Dry, Intact, Normal Color, Warm Discharge Plan - Discharge Medications Prescriptions: Ciprofloxacin HCl [Cipro] 500 mg PO BID #14 tablet Ergocalciferol [Drisdol 50,000 Intl Units Cap] 1 cap PO Q7D #4 cap Ibuprofen [Motrin Tab] 400 mg PO Q6 PRN #20 tab PRN Reason: Pain, Moderate (4-7) metroNIDAZOLE [Flagyl] 500 mg PO Q8 #21 tab Naproxen [Anaprox DS] 550 mg PO BID #10 tab - Follow Up Plan Condition: STABLE Disposition: HOME/ ROUTINE Instructions: Ovarian Cysts, Uterine Fibroids, Ovarian Cyst (DC) Additional Instructions: - please follow up with Dr. Guzman in his office tomorrow, 06/13/18. Please call the office to make an appointment - please follow up with Dr. Kim within 1 week - please take ibuprofen if needed every 6 hours for your pain - please take the prescribed cipro/flagyl antibiotics as prescribed - if you feel short of breath, experience chest pain, dizziness or weakness, please return to ER for evaluation Referrals: Cedric Guzman MD [Staff Provider] - Polo Brooks MD [Staff Provider] - Presley Kim MD [Staff Provider] -
[2018-06-12 16:33] VITALS: BP 127/76; RESP 20; TEMP 98.5; O2SAT 100
--- NOTE | 2018-06-12 20:32 | CP.PCM.CON ---
History of Present Illness - History of Present Illness History of Present Illness: 48 year old female with PMH of bilateral ovarian cysts, HTN, bilateral tubal ligation came in to [facility] [place] because of lower abdominal pain as well heavier than usual menstrual bleeding. This was associated with some nausea and some episodes of vomiting. The patient denies diarrhea, no fever or chills, no dysuria, no headache or dizziness, no chest pain, no SOB, no cough or rhinorrhea, no sore throat. CT scan of the abdomen and pelvis are showing cysts of the ovaries. Infectious Diseases consult is requested to further evaluate and manage. Review of Systems - Review of Systems All systems: reviewed and no additional remarkable complaints except (as per HPI) Past Patient History - Past Social History Smoking Status: Never Smoked - CARDIAC Hx Cardiac Disorders: Yes Hx Hypertension: Yes - PULMONARY Hx Respiratory Disorders: No - NEUROLOGICAL Hx Neurological Disorder: No - HEENT Hx HEENT Problems: No - RENAL Hx Chronic Kidney Disease: No - ENDOCRINE/METABOLIC Hx Endocrine Disorders: No - HEMATOLOGICAL/ONCOLOGICAL Hx Blood Disorders: No - INTEGUMENTARY Hx Dermatological Problems: No - MUSCULOSKELETAL/RHEUMATOLOGICAL Hx Musculoskeletal Disorders: No Hx Falls: No - GASTROINTESTINAL Hx Gastrointestinal Disorders: No - GENITOURINARY/GYNECOLOGICAL Hx Genitourinary Disorders: Yes (ovarian cyst) - PSYCHIATRIC Hx Substance Use: No - SURGICAL HISTORY Hx Tubal Ligation: Yes Meds Home Medications: Home Medication List Medication Instructions Recorded Confirmed Type Acetaminophen [Tylenol 325mg tab] 650 mg PO Q6 PRN tab 06/12/18 Rx Acetaminophen [Tylenol 650 mg Supp] 650 mg RC Q6H PRN sup 06/12/18 Rx Ciprofloxacin HCl [Cipro] 500 mg PO BID #14 tablet 06/12/18 Rx Ergocalciferol [Drisdol 50,000 1 cap PO Q7D #4 cap 06/12/18 Rx Intl Units Cap] Ibuprofen [Motrin Tab] 400 mg PO Q6 PRN #20 tab 06/12/18 Rx Naproxen [Anaprox DS] 550 mg PO BID #10 tab 06/12/18 Rx metroNIDAZOLE [Flagyl] 500 mg PO Q8 #21 tab 06/12/18 Rx Allergies/Adverse Reactions: Allergies Allergy/AdvReac Type Severity Reaction Status Date / Time No Known Allergies Allergy Verified 06/10/18 18:26 - Medications Medications: Current Medications Acetaminophen (Tylenol 325mg Tab) 650 mg PO Q6 PRN PRN Reason: TEMP>=99.5F Acetaminophen (Tylenol 650 Mg Supp) 650 mg RC Q6H PRN PRN Reason: TEMP>=99.5F Sodium Chloride (Sodium Chloride 0.9%) 1,000 mls @ 100 mls/hr IV .Q10H [facility] Last Admin: 06/11/18 19:00 Dose: 100 mls/hr Metronidazole (Flagyl) 500 mg in 100 mls @ 100 mls/hr IVPB Q8 [facility]; Protocol Last Admin: 06/11/18 22:10 Dose: 100 mls/hr Ceftriaxone Sodium (Rocephin 1 Gram Ivpb) 1 gm in 100 mls @ 100 mls/hr IVPB DAILY [facility]; Protocol Last Admin: 06/11/18 09:52 Dose: 100 mls/hr Naproxen (Anaprox Ds) 550 mg PO BID [facility] Last Admin: 06/11/18 13:47 Dose: 550 mg Ondansetron HCl (Zofran Inj) 4 mg IVP Q4H PRN PRN Reason: Nausea/Vomiting Pantoprazole Sodium (Protonix Ec Tab) 40 mg PO 0600 [facility] Physical Exam - Constitutional Appears: Chronically Ill - Head Exam Head Exam: NORMAL INSPECTION - Respiratory Exam Respiratory Exam: Decreased Breath Sounds - Cardiovascular Exam Cardiovascular Exam: +S1, +S2 - GI/Abdominal Exam GI & Abdominal Exam: Soft. absent: Tenderness Results - Vital Signs Recent Vital Signs: Last Vital Signs Temp 97.8 F 06/11/18 18:00 Pulse 72 06/11/18 18:00 Resp 18 06/11/18 18:00 BP 125/72 06/11/18 18:00 Pulse Ox 99 06/10/18 22:53 - Labs Result Diagrams: 06/12/18 07:33 06/12/18 07:33 Labs: Laboratory Results - last 24 hr 06/10/18 06/11/18 06/11/18 23:12 01:20 05:30 WBC 16.9 H D RBC 4.05 Hgb 10.7 L Hct 32.8 L MCV 81.0 MCH 26.4 MCHC 32.6 RDW 17.0 H Plt Count 356 MPV 8.7 Neut % (Auto) 82.2 H Lymph % (Auto) 13.2 L [place] % (Auto) 4.5 Eos % (Auto) 0.1 L Baso % (Auto) 0.0 Lymph # (Auto) 2.2 [place] # (Auto) 0.8 H Eos # (Auto) 0.0 Baso # (Auto) 0.00 Absolute Neuts (auto) 13.85 H pO2 72 H VBG pH 7.36 VBG pCO2 44.0 VBG HCO3 24.9 VBG Total CO2 26.3 VBG O2 Sat (Calc) 94.6 H VBG Base Excess -0.8 L VBG Potassium 3.3 L Sodium 140.0 Chloride 110.0 H Glucose 136 H Lactate 2.6 H FiO2 21.0 Crit Value Called To Kirk dubose deputy county attorney Crit Value Called By [facility] Blood Gas Notified Time 2319 Potassium Carbon Dioxide Anion Gap BUN Creatinine Est GFR ( Amer) Est GFR (Non-Af Amer) Random Glucose Hemoglobin A1c Lactic Acid Uric Acid Calcium Phosphorus Magnesium Iron TIBC % Saturation Ferritin Total Bilirubin AST ALT Alkaline Phosphatase Total Protein Albumin Globulin Albumin/Globulin Ratio Triglycerides Cholesterol LDL Cholesterol Direct HDL Cholesterol Vitamin B12 25-OH Vitamin D Total Folate Procalcitonin < 0.50 H Free T4 Thyroxine (T4) TSH 3rd Generation Venous Blood Potassium 3.3 L 06/11/18 06/11/18 06/11/18 05:30 05:30 05:30 WBC 13.1 H D RBC 3.76 Hgb 10.0 L Hct 30.6 L MCV 81.4 MCH 26.6 MCHC 32.7 RDW 17.3 H Plt Count 350 MPV 9.3 Neut % (Auto) 75.2 H Lymph % (Auto) 17.1 L [place] % (Auto) 7.2 H Eos % (Auto) 0.4 L Baso % (Auto) 0.1 Lymph # (Auto) 2.2 [place] # (Auto) 1.0 H Eos # (Auto) 0.1 Baso # (Auto) 0.01 Absolute Neuts (auto) 9.87 H pO2 VBG pH VBG pCO2 VBG HCO3 VBG Total CO2 VBG O2 Sat (Calc) VBG Base Excess VBG Potassium Sodium 139 Chloride 112 H D Glucose Lactate FiO2 Crit Value Called To Crit Value Called By Blood Gas Notified Time Potassium 4.0 Carbon Dioxide 23 Anion Gap 7 L BUN 9 Creatinine 0.5 L Est GFR ( Amer) > 60 Est GFR (Non-Af Amer) > 60 Random Glucose 98 Hemoglobin A1c Lactic Acid Uric Acid Calcium 7.5 L Phosphorus 2.1 L Magnesium 2.9 H Iron 45 TIBC 374 % Saturation 12 L Ferritin Total Bilirubin 0.4 AST 17 ALT 16 Alkaline Phosphatase 66 Total Protein 5.6 L Albumin 2.9 L Globulin 2.6 Albumin/Globulin Ratio 1.1 Triglycerides Cholesterol LDL Cholesterol Direct HDL Cholesterol Vitamin B12 25-OH Vitamin D Total Folate Procalcitonin Free T4 Thyroxine (T4) TSH 3rd Generation Venous Blood Potassium 06/11/18 06/11/18 06/11/18 05:30 07:40 09:00 WBC RBC Hgb Hct MCV MCH MCHC RDW Plt Count MPV Neut % (Auto) Lymph % (Auto) [place] % (Auto) Eos % (Auto) Baso % (Auto) Lymph # (Auto) [place] # (Auto) Eos # (Auto) Baso # (Auto) Absolute Neuts (auto) pO2 VBG pH VBG pCO2 VBG HCO3 VBG Total CO2 VBG O2 Sat (Calc) VBG Base Excess VBG Potassium Sodium Chloride Glucose Lactate FiO2 Crit Value Called To Crit Value Called By Blood Gas Notified Time Potassium Carbon Dioxide Anion Gap BUN Creatinine Est GFR ( Amer) Est GFR (Non-Af Amer) Random Glucose Hemoglobin A1c 6.6 H Lactic Acid Uric Acid 2.5 Calcium Phosphorus Magnesium Iron TIBC % Saturation Ferritin 13.4 Total Bilirubin AST ALT Alkaline Phosphatase Total Protein Albumin Globulin Albumin/Globulin Ratio Triglycerides 159 Cholesterol 136 LDL Cholesterol Direct 72 HDL Cholesterol 37 Vitamin B12 390 25-OH Vitamin D Total Folate 16.6 Procalcitonin Free T4 Thyroxine (T4) TSH 3rd Generation Venous Blood Potassium 06/11/18 06/11/18 06/11/18 09:00 09:00 09:35 WBC RBC Hgb Hct MCV MCH MCHC RDW Plt Count MPV Neut % (Auto) Lymph % (Auto) [place] % (Auto) Eos % (Auto) Baso % (Auto) Lymph # (Auto) [place] # (Auto) Eos # (Auto) Baso # (Auto) Absolute Neuts (auto) pO2 84 H VBG pH 7.44 H VBG pCO2 31.0 L VBG HCO3 21.1 VBG Total CO2 22.1 VBG O2 Sat (Calc) 98.5 H VBG Base Excess -2.1 L VBG Potassium 3.5 L Sodium 140.0 Chloride 109.0 H Glucose 234 H Lactate 3.8 H FiO2 21.0 Crit Value Called To Barney Crit Value Called By Ab Blood Gas Notified Time 950 Potassium Carbon Dioxide Anion Gap BUN Creatinine Est GFR ( Amer) Est GFR (Non-Af Amer) Random Glucose Hemoglobin A1c Lactic Acid Uric Acid Calcium Phosphorus Magnesium Iron TIBC % Saturation Ferritin Total Bilirubin AST ALT Alkaline Phosphatase Total Protein Albumin Globulin Albumin/Globulin Ratio Triglycerides Cholesterol LDL Cholesterol Direct HDL Cholesterol Vitamin B12 25-OH Vitamin D Total 16.3 L Folate Procalcitonin Free T4 1.05 Thyroxine (T4) 8.7 TSH 3rd Generation 2.80 Venous Blood Potassium 3.5 L 06/11/18 06/11/18 06/11/18 09:35 13:10 13:50 WBC 11.3 H RBC 3.49 L Hgb 9.5 L Hct 28.8 L MCV 82.5 MCH 27.2 MCHC 33.0 RDW 17.5 H Plt Count 297 MPV 8.9 Neut % (Auto) Lymph % (Auto) [place] % (Auto) Eos % (Auto) Baso % (Auto) Lymph # (Auto) [place] # (Auto) Eos # (Auto) Baso # (Auto) Absolute Neuts (auto) pO2 186 H VBG pH 7.45 H VBG pCO2 31.0 L VBG HCO3 21.5 VBG Total CO2 22.5 VBG O2 Sat (Calc) 100.2 H VBG Base Excess -1.6 L VBG Potassium 3.9 Sodium 139.0 Chloride 112.0 H Glucose 149 H Lactate 1.6 FiO2 21.0 Crit Value Called To Crit Value Called By Blood Gas Notified Time Potassium Carbon Dioxide Anion Gap BUN Creatinine Est GFR ( Amer) Est GFR (Non-Af Amer) Random Glucose Hemoglobin A1c Lactic Acid 3.7 H Uric Acid Calcium Phosphorus Magnesium Iron TIBC % Saturation Ferritin Total Bilirubin AST ALT Alkaline Phosphatase Total Protein Albumin Globulin Albumin/Globulin Ratio Triglycerides Cholesterol LDL Cholesterol Direct HDL Cholesterol Vitamin B12 25-OH Vitamin D Total Folate Procalcitonin Free T4 Thyroxine (T4) TSH 3rd Generation Venous Blood Potassium 3.9 Assessment & Plan - Assessment and Plan (Free Text) Plan: Assessment Bilateral ovarian cysts, R/O PID (but less likely) HTN bilateral tubal ligation Plan started on Rocephin and Flagyl and follow up blood cx follow up Coding Clerks Supervisor evaluation and recommendations
--- NOTE | 2018-06-19 06:02 | PQF ---
PROVIDER RESPONSE TEXT: Refer to infectious note evaluation REVIEWER QUERY TEXT: Rule Out Sepsis Clarification Rule out Sepsis is documented in the Medical Record. Please clarify whether: -- Patient has sepsis - Please document confirmed, suspected or probable causative organism - Please document confirmed, suspected or probable localized infection - Please clarify if sepsis is related to a device - Please clarify if sepsis was present on admission -- Sepsis was ruled out (include corresponding diagnosis for patient?s clinical picture and treatment ) -- Patient had sepsis which is resolved -- Other, please specify The patient's Clinical Indicators include: Your documentation notes "questionable sepsis vs SIRS with lactic acidosis". Please document if sepsis was present, ruled out, undetermined. Query created by: Jasmin Wick on 06/12/2018 1:58 PM Electronically signed by: Presley Kim MD 06/19/2018 5:59 AM
== END 2018-06-12 17:04 | disposition home or self-care (01) | DRG 760 ==
LOC: ED 18:20 → ERH 22:26 → 2RNO 23:45 → 3RSO 06-12 13:33
PROVIDERS: ADMIT Internal Medicine; ATTEND Internal Medicine
DX: N93.9 Abnormal uterine and vaginal bleeding, unspecified (principal); E87.2 Acidosis; E44.1 Mild protein-calorie malnutrition; N83.202 Unspecified ovarian cyst, left side; N83.201 Unspecified ovarian cyst, right side; N92.0 Excessive and frequent menstruation with regular cycle; I10 Essential (primary) hypertension; E87.6 Hypokalemia; K57.30 Diverticulosis of large intestine without perforation or abscess without bleeding; N88.8 Other specified noninflammatory disorders of cervix uteri; D25.9 Leiomyoma of uterus, unspecified; E86.1 Hypovolemia; N94.6 Dysmenorrhea, unspecified; E55.9 Vitamin D deficiency, unspecified; R73.03 Prediabetes; K76.0 Fatty (change of) liver, not elsewhere classified; N20.0 Calculus of kidney; D64.9 Anemia, unspecified; R10.2 Pelvic and perineal pain; R93.89 Abnormal findings on diagnostic imaging of other specified body structures; Z68.21 Body mass index [BMI] 21.0-21.9, adult